=== PATIENT | male | born 1950 | race Caucasian/White ===

== ENCOUNTER 2019-03-19 20:54 | Inpatient (IN) ==
[2019-03-19 21:28] LABS: Basophils % 0.3 % (0.0-0.8); Eosinophils % 0.1 % (0.00-10.9); Hematocrit 44.6 VOL% (42.0-52.0); Hemoglobin 14.8 GM/DL (14.0-18.0); Immature Granulocytes % 0.5 %; Immature Granulocytes Absolute 0.07 #; Lymphocytes # 0.8 10*3/uL (1.4-4.0); Lymphocytes % 5.3 % (21.2-54.2); Mean Corpuscular HGB Conc 33.2 GM/DL (32-36); Mean Corpuscular Volume 93.7 FL (87-102); Mean Platelet Volume 10.8 FL (9.6-12.0); Monocytes % 4.6 % (1.7-12.7); Neutrophils % 89.2 % (38.7-73.9); Platelet Count 156 T/CUMM (130-400); Red Blood Count 4.76 MC/CUMM (3.8-5.5); Red Cell Distribution Width 13.6 % (9.3-17.3); White Blood Count 14.2 T/CUMM (4-12)
[2019-03-19 21:46] LABS: PT Patient Result 10.5 SECS; Partial Thromboplastin Time 29.9 SECS (0-40)
[2019-03-19 22:18] LABS: Bilirubin,Total 0.9 MG/DL (0.2-1.0); Calcium 8.5 MG/DL (8.5-10.1); Osmolality,Calculated 272.2 MOS/KG (273-304); Total Protein 6.8 G/DL (6.4-8.3)
[2019-03-20] MEDS ORDERED: cefTRIAXone 1,000 MG in SODIUM CHLORIDE 0.9% 100 ML IV STA (00:28)
[2019-03-20] MEDS ORDERED: ONDANSETRON 4 MG/2 ML VIAL IV STA (00:28)
[2019-03-20] MEDS ORDERED: methylPREDNISolone SOD SUC 125 MG/2 ML VIAL IV STA (00:28)
[2019-03-20] MEDS ORDERED: ALBUTEROL/IPRATROPIUM 3 ML NEB RESP TX STA (00:28)
[2019-03-20] MEDS ORDERED: MORPHINE 4 MG/1 ML VIAL IV STA (00:28)
[2019-03-20] MEDS ORDERED: ACETAMINOPHEN 325 MG TABLET PO PRN (03:38)
[2019-03-20] MEDS ORDERED: PNEUMOCOCCAL VACCINE (13 VALENT) 0.5 ML SYRINGE IM ONE (03:41)
[2019-03-20] MEDS: LEVOFLOXACIN INJ 750 MG in PREMIX 1 EACH IV SCH (04:30)
[2019-03-20 06:32] LABS: Basophils % 0.2 % (0.0-0.8); Hematocrit 42.4 VOL% (42.0-52.0); Immature Granulocytes % 0.8 %; Immature Granulocytes Absolute 0.09 #; Lymphocytes # 0.3 10*3/uL (1.4-4.0); Lymphocytes % 3.1 % (21.2-54.2); Mean Platelet Volume 11.1 FL (9.6-12.0); Monocytes % 2.1 % (1.7-12.7); Neutrophils % 93.8 % (38.7-73.9); Platelet Count 135 T/CUMM (130-400); Red Blood Count 4.51 MC/CUMM (3.8-5.5); Red Cell Distribution Width 13.5 % (9.3-17.3); White Blood Count 11.1 T/CUMM (4-12)
[2019-03-20 06:58] LABS: Band Neutrophils 2 % (0-10); Hypochromasia Slight; Lymphocytes 2 % (20-55); Ovalocytes Slight; Platelet Estimate Normal; Segmented Neutrophils 95 % (50-85); Total Cells Counted 100
[2019-03-20] MEDS: ALBUTEROL/IPRATROPIUM 3 ML NEB RESP TX SCH ×3 (07:18→20:17)
[2019-03-20] MEDS: MORPHINE 4 MG/1 ML VIAL IV PRN ×2 (09:02→16:52)
[2019-03-20] MEDS: ENOXAPARIN 40 MG/0.4 ML SYRINGE SUBCUT SCH (09:02)
[2019-03-20] MEDS: PANTOPRAZOLE 40 MG TABLET PO SCH (09:02)
[2019-03-20] MEDS: clonazePAM 0.5 MG TABLET PO SCH ×3 (13:04→21:34)
[2019-03-21] MEDS: ALBUTEROL/IPRATROPIUM 3 ML NEB RESP TX SCH ×4 (00:53→19:34)
[2019-03-21] MEDS: MORPHINE 4 MG/1 ML VIAL IV PRN ×2 (01:52→21:58)
[2019-03-21 04:30] LABS: Basophils % 0.1 % (0.0-0.8); Hemoglobin 12.5 GM/DL (14.0-18.0); Immature Granulocytes % 0.8 %; Immature Granulocytes Absolute 0.08 #; Lymphocytes # 0.8 10*3/uL (1.4-4.0); Lymphocytes % 7.6 % (21.2-54.2); Mean Corpuscular HGB Conc 33.8 GM/DL (32-36); Mean Corpuscular Volume 92.7 FL (87-102); Mean Platelet Volume 11.6 FL (9.6-12.0); Monocytes % 9.4 % (1.7-12.7); Neutrophils % 82.1 % (38.7-73.9); Platelet Count 144 T/CUMM (130-400); Red Blood Count 3.99 MC/CUMM (3.8-5.5); Red Cell Distribution Width 13.3 % (9.3-17.3); White Blood Count 10.5 T/CUMM (4-12)
[2019-03-21] MEDS: LEVOFLOXACIN INJ 750 MG in PREMIX 1 EACH IV SCH (04:30)
[2019-03-21 04:56] LABS: Calcium 8.7 MG/DL (8.5-10.1); Osmolality,Calculated 283.5 MOS/KG (273-304)
[2019-03-21] MEDS ORDERED: POTASSIUM CHLORIDE 20 MEQ TABLET PO ONE ×2 (08:24→12:00)
[2019-03-21] MEDS: ENOXAPARIN 40 MG/0.4 ML SYRINGE SUBCUT SCH (08:26)
[2019-03-21] MEDS: PANTOPRAZOLE 40 MG TABLET PO SCH (08:27)
[2019-03-21] MEDS: clonazePAM 0.5 MG TABLET PO SCH ×4 (08:27→21:45)
[2019-03-21] MEDS ORDERED: NICOTINE 21 MG/24 HR PATCH TRANSDERM PRN (11:25)
[2019-03-21] MEDS: LISINOPRIL 10 MG TABLET PO SCH (12:09)
[2019-03-21] MEDS: VANCOMYCIN INJ 1,000 MG in SODIUM CHLORIDE 0.9% 250 ML IV SCH ×2 (12:15→21:45)
[2019-03-22] MEDS: ALBUTEROL/IPRATROPIUM 3 ML NEB RESP TX SCH ×4 (00:16→19:20)
[2019-03-22] MEDS: MORPHINE 4 MG/1 ML VIAL IV PRN ×2 (04:04→08:53)
[2019-03-22] MEDS: LEVOFLOXACIN INJ 750 MG in PREMIX 1 EACH IV SCH (04:05)
[2019-03-22 05:42] LABS: Basophils % 0.3 % (0.0-0.8); Eosinophils # 0.2 10*3/uL (0.0-0.87); Eosinophils % 2.9 % (0.00-10.9); Hemoglobin 12.5 GM/DL (14.0-18.0); Immature Granulocytes % 0.5 %; Immature Granulocytes Absolute 0.03 #; Lymphocytes # 0.9 10*3/uL (1.4-4.0); Lymphocytes % 15.4 % (21.2-54.2); Mean Corpuscular HGB Conc 32.9 GM/DL (32-36); Mean Corpuscular Volume 94.5 FL (87-102); Mean Platelet Volume 11.3 FL (9.6-12.0); Monocytes % 12.3 % (1.7-12.7); Neutrophils % 68.6 % (38.7-73.9); Platelet Count 146 T/CUMM (130-400); Red Blood Count 4.02 MC/CUMM (3.8-5.5); Red Cell Distribution Width 13.7 % (9.3-17.3); White Blood Count 6.1 T/CUMM (4-12)
[2019-03-22] MEDS: PANTOPRAZOLE 40 MG TABLET PO SCH (08:51)
[2019-03-22] MEDS: LISINOPRIL 10 MG TABLET PO SCH (08:51)
[2019-03-22] MEDS: clonazePAM 0.5 MG TABLET PO SCH ×4 (08:52→21:44)
[2019-03-22] MEDS ORDERED: LACTULOSE 20 GM/30 ML UDCUP PO PRN (08:58)
[2019-03-22 09:23] LABS: Calcium 8.3 MG/DL (8.5-10.1); Osmolality,Calculated 279.4 MOS/KG (273-304)
[2019-03-22] MEDS: LIDOCAINE 5% PATCH TRANSDERM SCH (10:39)
[2019-03-22] MEDS: ENOXAPARIN 40 MG/0.4 ML SYRINGE SUBCUT SCH (10:40)
[2019-03-22] MEDS: VANCOMYCIN INJ 1,000 MG in SODIUM CHLORIDE 0.9% 250 ML IV SCH ×2 (10:44→21:44)
[2019-03-22] MEDS: LISINOPRIL 20 MG TABLET PO SCH (12:15)
[2019-03-22] MEDS ORDERED: LISINOPRIL 10 MG TABLET PO ONE (12:30)
[2019-03-22] MEDS: LEFLUNOMIDE 10 MG TABLET PO SCH (12:54)
[2019-03-22] MEDS: MELOXICAM 7.5 MG TABLET PO SCH (12:54)
[2019-03-22] MEDS: predniSONE 5 MG TABLET PO SCH (12:54)
[2019-03-23] MEDS: ALBUTEROL/IPRATROPIUM 3 ML NEB RESP TX SCH ×4 (00:34→19:08)
[2019-03-23] MEDS: MORPHINE 4 MG/1 ML VIAL IV PRN ×4 (02:57→20:28)
[2019-03-23] MEDS: LEVOFLOXACIN INJ 750 MG in PREMIX 1 EACH IV SCH (04:27)
[2019-03-23 05:46] LABS: Basophils % 0.2 % (0.0-0.8); Eosinophils # 0.1 10*3/uL (0.0-0.87); Eosinophils % 1.7 % (0.00-10.9); Hematocrit 37.4 VOL% (42.0-52.0); Hemoglobin 12.4 GM/DL (14.0-18.0); Immature Granulocytes % 0.6 %; Immature Granulocytes Absolute 0.03 #; Lymphocytes # 1.1 10*3/uL (1.4-4.0); Lymphocytes % 20.1 % (21.2-54.2); Mean Corpuscular HGB Conc 33.2 GM/DL (32-36); Mean Corpuscular Volume 93.5 FL (87-102); Monocytes % 13.8 % (1.7-12.7); Neutrophils % 63.6 % (38.7-73.9); Platelet Count 164 T/CUMM (130-400); Red Cell Distribution Width 13.7 % (9.3-17.3); White Blood Count 5.4 T/CUMM (4-12)
[2019-03-23 05:59] LABS: Calcium 8.2 MG/DL (8.5-10.1); Osmolality,Calculated 280.4 MOS/KG (273-304)
[2019-03-23] MEDS: VANCOMYCIN INJ 1,000 MG in SODIUM CHLORIDE 0.9% 250 ML IV SCH ×3 (06:17→22:28)
[2019-03-23] MEDS: LIDOCAINE 5% PATCH TRANSDERM SCH (08:56)
[2019-03-23] MEDS: clonazePAM 0.5 MG TABLET PO SCH ×4 (09:06→22:28)
[2019-03-23] MEDS: LEFLUNOMIDE 10 MG TABLET PO SCH (09:07)
[2019-03-23] MEDS: MELOXICAM 7.5 MG TABLET PO SCH (09:07)
[2019-03-23] MEDS: LISINOPRIL 20 MG TABLET PO SCH (09:07)
[2019-03-23] MEDS: ENOXAPARIN 40 MG/0.4 ML SYRINGE SUBCUT SCH (09:08)
[2019-03-23] MEDS: predniSONE 5 MG TABLET PO SCH (09:08)
[2019-03-23] MEDS: PANTOPRAZOLE 40 MG TABLET PO SCH (09:08)
[2019-03-23] MEDS: ONDANSETRON 4 MG/2 ML VIAL IV PRN (22:27)
[2019-03-24] MEDS: ALBUTEROL/IPRATROPIUM 3 ML NEB RESP TX SCH ×4 (00:28→20:20)
[2019-03-24] MEDS: MORPHINE 4 MG/1 ML VIAL IV PRN ×4 (04:55→23:56)
[2019-03-24] MEDS: VANCOMYCIN INJ 1,000 MG in SODIUM CHLORIDE 0.9% 250 ML IV SCH ×3 (05:01→23:55)
[2019-03-24 05:42] LABS: Basophils % 0.3 % (0.0-0.8); Eosinophils # 0.2 10*3/uL (0.0-0.87); Eosinophils % 2.5 % (0.00-10.9); Hematocrit 37.8 VOL% (42.0-52.0); Hemoglobin 12.5 GM/DL (14.0-18.0); Immature Granulocytes % 0.5 %; Immature Granulocytes Absolute 0.03 #; Lymphocytes # 1.5 10*3/uL (1.4-4.0); Lymphocytes % 24.5 % (21.2-54.2); Mean Corpuscular HGB Conc 33.1 GM/DL (32-36); Mean Corpuscular Volume 93.6 FL (87-102); Mean Platelet Volume 10.3 FL (9.6-12.0); Monocytes % 15.4 % (1.7-12.7); Neutrophils % 56.8 % (38.7-73.9); Platelet Count 185 T/CUMM (130-400); Red Blood Count 4.04 MC/CUMM (3.8-5.5); Red Cell Distribution Width 13.6 % (9.3-17.3)
[2019-03-24 05:55] LABS: Calcium 8.5 MG/DL (8.5-10.1); Osmolality,Calculated 280.4 MOS/KG (273-304)
[2019-03-24] MEDS: LIDOCAINE 5% PATCH TRANSDERM SCH (08:51)
[2019-03-24] MEDS: ENOXAPARIN 40 MG/0.4 ML SYRINGE SUBCUT SCH (08:52)
[2019-03-24] MEDS: MELOXICAM 7.5 MG TABLET PO SCH (08:52)
[2019-03-24] MEDS: predniSONE 5 MG TABLET PO SCH (08:52)
[2019-03-24] MEDS: clonazePAM 0.5 MG TABLET PO SCH ×4 (08:53→23:55)
[2019-03-24] MEDS: PANTOPRAZOLE 40 MG TABLET PO SCH (08:53)
[2019-03-24] MEDS: LEFLUNOMIDE 10 MG TABLET PO SCH (08:53)
[2019-03-24] MEDS: LISINOPRIL 20 MG TABLET PO SCH ×2 (08:53→23:54)
[2019-03-25] MEDS: ALBUTEROL/IPRATROPIUM 3 ML NEB RESP TX SCH ×4 (00:47→19:39)
[2019-03-25] MEDS: MORPHINE 4 MG/1 ML VIAL IV PRN ×3 (05:41→22:16)
[2019-03-25] MEDS: VANCOMYCIN INJ 1,000 MG in SODIUM CHLORIDE 0.9% 250 ML IV SCH ×3 (05:42→22:26)
[2019-03-25 05:48] LABS: Basophils % 0.5 % (0.0-0.8); Eosinophils # 0.2 10*3/uL (0.0-0.87); Eosinophils % 2.7 % (0.00-10.9); Hematocrit 38.4 VOL% (42.0-52.0); Hemoglobin 12.7 GM/DL (14.0-18.0); Immature Granulocytes % 0.5 %; Immature Granulocytes Absolute 0.03 #; Lymphocytes # 1.2 10*3/uL (1.4-4.0); Lymphocytes % 19.3 % (21.2-54.2); Mean Corpuscular HGB Conc 33.1 GM/DL (32-36); Mean Corpuscular Volume 93.4 FL (87-102); Mean Platelet Volume 9.9 FL (9.6-12.0); Monocytes % 14.8 % (1.7-12.7); Neutrophils % 62.2 % (38.7-73.9); Platelet Count 190 T/CUMM (130-400); Red Blood Count 4.11 MC/CUMM (3.8-5.5); Red Cell Distribution Width 13.5 % (9.3-17.3); White Blood Count 6.2 T/CUMM (4-12)
[2019-03-25 05:50] LABS: Calcium 8.5 MG/DL (8.5-10.1); Osmolality,Calculated 282.4 MOS/KG (273-304)
[2019-03-25] MEDS: ALBUTEROL 2.5 MG/3 ML NEB RESP TX PRN ×2 (07:28→07:29)
[2019-03-25] MEDS: ENOXAPARIN 40 MG/0.4 ML SYRINGE SUBCUT SCH (08:47)
[2019-03-25] MEDS: PANTOPRAZOLE 40 MG TABLET PO SCH (08:48)
[2019-03-25] MEDS: clonazePAM 0.5 MG TABLET PO SCH ×4 (08:48→20:40)
[2019-03-25] MEDS: predniSONE 5 MG TABLET PO SCH (08:48)
[2019-03-25] MEDS: LISINOPRIL 20 MG TABLET PO SCH ×2 (08:48→20:40)
[2019-03-25] MEDS: MELOXICAM 7.5 MG TABLET PO SCH (08:48)
[2019-03-25] MEDS: LEFLUNOMIDE 10 MG TABLET PO SCH (08:48)
[2019-03-25] MEDS: LIDOCAINE 5% PATCH TRANSDERM SCH (08:56)
[2019-03-25] MEDS: ONDANSETRON 4 MG/2 ML VIAL IV PRN (23:43)
[2019-03-26] MEDS: ALBUTEROL/IPRATROPIUM 3 ML NEB RESP TX SCH ×3 (00:16→13:40)
[2019-03-26] MEDS: MORPHINE 4 MG/1 ML VIAL IV PRN ×2 (04:37→12:04)
[2019-03-26] MEDS: VANCOMYCIN INJ 1,000 MG in SODIUM CHLORIDE 0.9% 250 ML IV SCH ×2 (06:35→14:30)
[2019-03-26] MEDS: LEFLUNOMIDE 10 MG TABLET PO SCH (09:01)
[2019-03-26] MEDS: LISINOPRIL 20 MG TABLET PO SCH (09:02)
[2019-03-26] MEDS: PANTOPRAZOLE 40 MG TABLET PO SCH (09:02)
[2019-03-26] MEDS: MELOXICAM 7.5 MG TABLET PO SCH (09:02)
[2019-03-26] MEDS: clonazePAM 0.5 MG TABLET PO SCH ×3 (09:03→18:18)
[2019-03-26] MEDS: LIDOCAINE 5% PATCH TRANSDERM SCH (09:03)
[2019-03-26] MEDS: ENOXAPARIN 40 MG/0.4 ML SYRINGE SUBCUT SCH (09:03)
[2019-03-26] MEDS: predniSONE 5 MG TABLET PO SCH (09:03)
[2019-03-26 16:11] VITALS: BP 154/96
== END 2019-03-26 17:25 | disposition home health service (06) | DRG 194 ==
LOC: N.ED 20:54 → N.EDINP 03-20 01:55 → SUATTDRO 03-20 01:55 → N.5E 03-20 02:24
PROVIDERS: ADMIT Internal Medicine; ATTEND Family Medicine

== ENCOUNTER 2019-05-02 02:43 | Inpatient (IN) ==
[2019-05-02] MEDS ORDERED: SODIUM CHLORIDE 0.9% 2,000 ML IV STA (02:54)
[2019-05-02 03:14] LABS: Basophils # 0.1 10*3/uL (0.0-0.2); Basophils % 0.4 % (0.0-0.8); Hematocrit 43.4 VOL% (42.0-52.0); Hemoglobin 13.9 GM/DL (14.0-18.0); Immature Granulocytes % 1.5 %; Immature Granulocytes Absolute 0.36 #; Lymphocytes # 0.6 10*3/uL (1.4-4.0); Lymphocytes % 2.6 % (21.2-54.2); Mean Corpuscular Volume 92.7 FL (87-102); Mean Platelet Volume 10.1 FL (9.6-12.0); Monocytes % 5.6 % (1.7-12.7); Neutrophils % 89.9 % (38.7-73.9); Platelet Count 286 T/CUMM (130-400); Red Blood Count 4.68 MC/CUMM (3.8-5.5); Red Cell Distribution Width 13.3 % (9.3-17.3); White Blood Count 24.2 T/CUMM (4-12)
[2019-05-02 03:35] LABS: Band Neutrophils 3 % (0-10); Lymphocytes 2 % (20-55); Metamyelocytes 1 %; Segmented Neutrophils 91 % (50-85); Total Cells Counted 100
[2019-05-02 03:36] LABS: Anisocytosis Slight; Microcytosis Slight
[2019-05-02 03:37] LABS: Burr Cells Few; Platelet Estimate Normal
[2019-05-02 03:39] LABS: Alanine Aminotransferase 38 U/L (16-61); Albumin 2.4 G/DL (3.4-5.0); Alkaline Phosphatase 121 U/L (45-117); Aspartate Amino Transferase 34 U/L (0-37); Blood Urea Nitrogen 41 MG/DL (7-18); Glucose 145 MG/DL (74-106); Osmolality,Calculated 282.1 MOS/KG (273-304); Total Protein 7.4 G/DL (6.4-8.3)
[2019-05-02] MEDS ORDERED: NOREPINEPHRINE 8 MG in SODIUM CHLORIDE 0.9% 242 ML IV PRN (03:46)
[2019-05-02] MEDS ORDERED: CEFEPIME 2,000 MG in SODIUM CHLORIDE 0.9% 100 ML IV STA (03:48)
[2019-05-02] MEDS ORDERED: VANCOMYCIN INJ 1,000 MG in SODIUM CHLORIDE 0.9% 250 ML IV STA (03:48)
[2019-05-02] MEDS ORDERED: metroNIDAZOLE INJ 500 MG in PREMIX 1 EACH IV STA ×2 (03:49→07:03)
[2019-05-02] MEDS ORDERED: ONDANSETRON 4 MG/2 ML VIAL IV PRN (06:11)
[2019-05-02] MEDS ORDERED: ALBUTEROL/IPRATROPIUM 3 ML NEB RESP TX PRN (06:11)
[2019-05-02] MEDS ORDERED: ALBUTEROL 2.5 MG/3 ML NEB RESP TX PRN (06:11)
[2019-05-02] MEDS ORDERED: ACETAMINOPHEN 325 MG TABLET PO PRN (06:11)
[2019-05-02] MEDS: SODIUM CHLORIDE 0.9% 1,000 ML IV SCH ×3 (06:27→20:24)
[2019-05-02 06:38] LABS: INR 1.2; PT Patient Result 12.7 SECS
[2019-05-02] MEDS: PIPERACILLIN/TAZOBACTAM 3,375 MG in SODIUM CHLORIDE 0.9% 100 ML IV SCH ×2 (07:04→17:32)
[2019-05-02] MEDS: FOLIC ACID 1 MG TABLET PO SCH (08:17)
[2019-05-02] MEDS ORDERED: predniSONE 5 MG TABLET PO SCH (09:00)
[2019-05-02] MEDS: chlordiazePOXIDE 10 MG CAPSULE PO SCH ×2 (12:33→21:57)
[2019-05-02] MEDS: GABAPENTIN 300 MG CAPSULE PO SCH ×2 (12:33→21:57)
[2019-05-02] MEDS: DICLOFENAC 1% GEL 100 GM TUBE TOP SCH ×3 (18:00→21:56)
[2019-05-02 20:41] LABS: Apearance,Urine CLOUDY (Clear); Bilirubin,Urine Negative (Negative); Blood, Urine Negative (Negative); Glucose,Urine (UA) 150 mg/dL (Negative); Granular Casts,Urine 21 /LPF (0-1); Hyaline Casts,Urine 28 /LPF (0-3); Ketones,Urine 5 mg/dL (Negative); Mucus,Urine Occasional /LPF (Occasional); Nitrite,Urine Negative (Negative); Protein,Urine 30 MG/DL; RBC,Urine 3 /HPF (0-4); Squamous Epithelial Cell,Urine Occasional /HPF (0-10); Urine Color Amber (Yellow); Urine Specific Gravity 1.029 (1.001-1.035); Urine Urobilinogen < 2.0 EU/DL (0.2-1.0); WBC,Urine 4 /HPF (0-6)
[2019-05-02] MEDS: predniSONE 10 MG TABLET PO SCH (21:57)
[2019-05-02] MEDS: MIRTAZAPINE 30 MG TABLET PO SCH (21:57)
[2019-05-03] MEDS: PIPERACILLIN/TAZOBACTAM 3,375 MG in SODIUM CHLORIDE 0.9% 100 ML IV SCH ×2 (00:36→08:53)
[2019-05-03 01:15] LABS: Calcium 8.3 MG/DL (8.5-10.1); Osmolality,Calculated 293.4 MOS/KG (273-304)
[2019-05-03 01:26] LABS: Basophils % 0.1 % (0.0-0.8); Eosinophils % 0.1 % (0.00-10.9); Hemoglobin 11.4 GM/DL (14.0-18.0); Immature Granulocytes % 1.3 %; Immature Granulocytes Absolute 0.22 #; Lymphocytes # 0.6 10*3/uL (1.4-4.0); Lymphocytes % 3.5 % (21.2-54.2); Mean Corpuscular HGB Conc 33.5 GM/DL (32-36); Mean Corpuscular Volume 90.9 FL (87-102); Mean Platelet Volume 10.7 FL (9.6-12.0); Monocytes % 6.8 % (1.7-12.7); Neutrophils % 88.2 % (38.7-73.9); Platelet Count 253 T/CUMM (130-400); Red Blood Count 3.74 MC/CUMM (3.8-5.5); Red Cell Distribution Width 13.1 % (9.3-17.3); White Blood Count 17.4 T/CUMM (4-12)
[2019-05-03] MEDS: SODIUM CHLORIDE 0.9% 1,000 ML IV SCH ×4 (02:07→19:42)
[2019-05-03 03:01] LABS: Lymphocytes 4 % (20-55); Segmented Neutrophils 89 % (50-85); Total Cells Counted 100
[2019-05-03 03:02] LABS: Anisocytosis 1+; Burr Cells Slight; Hypochromasia Slight; Microcytosis Slight; Ovalocytes Slight; Platelet Estimate Adequate
[2019-05-03] MEDS: FOLIC ACID 1 MG TABLET PO SCH (08:50)
[2019-05-03] MEDS: chlordiazePOXIDE 10 MG CAPSULE PO SCH ×2 (08:50→20:27)
[2019-05-03] MEDS: GABAPENTIN 300 MG CAPSULE PO SCH ×2 (08:51→20:27)
[2019-05-03] MEDS: predniSONE 10 MG TABLET PO SCH ×2 (08:51→20:27)
[2019-05-03] MEDS: DICLOFENAC 1% GEL 100 GM TUBE TOP SCH ×4 (08:52→20:28)
[2019-05-03] MEDS: VANCOMYCIN INJ 1,250 MG in SODIUM CHLORIDE 0.9% 250 ML IV SCH (10:07)
[2019-05-03] MEDS: MIRTAZAPINE 30 MG TABLET PO SCH (20:27)
[2019-05-04 04:16] LABS: Basophils % 0.1 % (0.0-0.8); Hematocrit 31.6 VOL% (42.0-52.0); Hemoglobin 10.4 GM/DL (14.0-18.0); Immature Granulocytes % 0.9 %; Lymphocytes # 0.5 10*3/uL (1.4-4.0); Lymphocytes % 4.1 % (21.2-54.2); Mean Corpuscular HGB Conc 32.9 GM/DL (32-36); Mean Corpuscular Volume 91.6 FL (87-102); Mean Platelet Volume 10.5 FL (9.6-12.0); Monocytes % 6.8 % (1.7-12.7); Neutrophils % 88.1 % (38.7-73.9); Platelet Count 240 T/CUMM (130-400); Red Blood Count 3.45 MC/CUMM (3.8-5.5); Red Cell Distribution Width 13.1 % (9.3-17.3); White Blood Count 11.3 T/CUMM (4-12)
[2019-05-04 04:39] LABS: Calcium 8.3 MG/DL (8.5-10.1); Osmolality,Calculated 290.1 MOS/KG (273-304)
[2019-05-04] MEDS: SODIUM CHLORIDE 0.9% 1,000 ML IV SCH ×3 (04:50→18:34)
[2019-05-04 05:00] LABS: Lymphocytes 3 % (20-55); Platelet Estimate Adequate; Segmented Neutrophils 90 % (50-85); Total Cells Counted 100
[2019-05-04 05:01] LABS: Burr Cells Slight; Hypochromasia Slight; Microcytosis Slight; Ovalocytes Slight
[2019-05-04] MEDS: GABAPENTIN 300 MG CAPSULE PO SCH ×2 (09:28→20:24)
[2019-05-04] MEDS: predniSONE 10 MG TABLET PO SCH ×2 (09:28→20:25)
[2019-05-04] MEDS: chlordiazePOXIDE 10 MG CAPSULE PO SCH ×2 (09:28→20:25)
[2019-05-04] MEDS: FOLIC ACID 1 MG TABLET PO SCH (09:28)
[2019-05-04] MEDS: VANCOMYCIN INJ 1,250 MG in SODIUM CHLORIDE 0.9% 250 ML IV SCH ×2 (09:29→20:26)
[2019-05-04] MEDS: DICLOFENAC 1% GEL 100 GM TUBE TOP SCH ×4 (10:49→20:35)
[2019-05-04] MEDS: MIRTAZAPINE 30 MG TABLET PO SCH (20:24)
[2019-05-05] MEDS: SODIUM CHLORIDE 0.9% 1,000 ML IV SCH ×4 (04:36→23:24)
[2019-05-05 04:47] LABS: Basophils % 0.2 % (0.0-0.8); Immature Granulocytes % 0.6 %; Immature Granulocytes Absolute 0.07 #; Lymphocytes # 0.6 10*3/uL (1.4-4.0); Lymphocytes % 5.1 % (21.2-54.2); Mean Corpuscular HGB Conc 32.4 GM/DL (32-36); Mean Corpuscular Volume 91.4 FL (87-102); Mean Platelet Volume 10.7 FL (9.6-12.0); Monocytes % 8.1 % (1.7-12.7); Platelet Count 261 T/CUMM (130-400); Red Blood Count 3.72 MC/CUMM (3.8-5.5); Red Cell Distribution Width 13.2 % (9.3-17.3); White Blood Count 11.2 T/CUMM (4-12)
[2019-05-05 05:16] LABS: Calcium 8.2 MG/DL (8.5-10.1)
[2019-05-05] MEDS: DICLOFENAC 1% GEL 100 GM TUBE TOP SCH ×4 (09:00→21:11)
[2019-05-05] MEDS: VANCOMYCIN INJ 1,250 MG in SODIUM CHLORIDE 0.9% 250 ML IV SCH ×2 (09:00→21:01)
[2019-05-05] MEDS ORDERED: FAMOTIDINE 20 MG TABLET PO ONE (09:00)
[2019-05-05] MEDS ORDERED: DIAZEPAM 5 MG TABLET PO ONE (09:00)
[2019-05-05] MEDS ORDERED: BACITRACIN OINT 0.9 GM PACK TOP ONE (11:21)
[2019-05-05] MEDS ORDERED: LIDOCAINE 1%/EPI INJ 20 ML VIAL ONE (11:21)
[2019-05-05] MEDS ORDERED: BACITRACIN 50,000 UNIT VIAL ONE (11:39)
[2019-05-05] MEDS ORDERED: PROPOFOL 200 MG/20 ML VIAL IV ONE (12:05)
[2019-05-05] MEDS ORDERED: fentaNYL 100 MCG/2 ML VIAL ONE (12:06)
[2019-05-05] MEDS ORDERED: MIDAZOLAM 2 MG/2 ML VIAL ONE (12:06)
[2019-05-05] MEDS ORDERED: KETAMINE 500 MG/10 ML VIAL ONE (12:07)
[2019-05-05] MEDS: GABAPENTIN 300 MG CAPSULE PO SCH ×2 (13:52→20:54)
[2019-05-05] MEDS: chlordiazePOXIDE 10 MG CAPSULE PO SCH ×2 (13:52→20:54)
[2019-05-05] MEDS: FOLIC ACID 1 MG TABLET PO SCH (13:52)
[2019-05-05] MEDS: predniSONE 10 MG TABLET PO SCH ×2 (13:52→20:55)
[2019-05-05 17:45] LABS: CDT Result Negative (Negative); CDT Specimen Source STOOL
[2019-05-05] MEDS: MIRTAZAPINE 30 MG TABLET PO SCH (20:55)
[2019-05-06] MEDS: LISINOPRIL 20 MG TABLET PO SCH ×2 (01:27→09:09)
[2019-05-06] MEDS: SODIUM CHLORIDE 0.9% 1,000 ML IV SCH ×4 (03:58→21:08)
[2019-05-06] MEDS: FOLIC ACID 1 MG TABLET PO SCH (09:09)
[2019-05-06] MEDS: chlordiazePOXIDE 10 MG CAPSULE PO SCH ×2 (09:09→21:17)
[2019-05-06] MEDS: GABAPENTIN 300 MG CAPSULE PO SCH ×2 (09:09→21:17)
[2019-05-06] MEDS: predniSONE 10 MG TABLET PO SCH ×2 (09:09→21:17)
[2019-05-06] MEDS: DICLOFENAC 1% GEL 100 GM TUBE TOP SCH ×4 (09:10→21:17)
[2019-05-06] MEDS: VANCOMYCIN INJ 1,250 MG in SODIUM CHLORIDE 0.9% 250 ML IV SCH ×2 (11:02→21:18)
[2019-05-06] MEDS ORDERED: oxyCODONE/ACETAMINOPHEN 5-325 MG TABLET PO PRN (12:33)
[2019-05-06] MEDS: oxyCODONE/ACETAMINOPHEN 5-325 MG TABLET PO PRN (19:31)
[2019-05-06] MEDS: MIRTAZAPINE 30 MG TABLET PO SCH (21:17)
[2019-05-07] MEDS: SODIUM CHLORIDE 0.9% 1,000 ML IV SCH ×3 (05:07→18:45)
[2019-05-07] MEDS: oxyCODONE/ACETAMINOPHEN 5-325 MG TABLET PO PRN ×3 (07:29→20:05)
[2019-05-07] MEDS: chlordiazePOXIDE 10 MG CAPSULE PO SCH ×2 (08:26→20:07)
[2019-05-07] MEDS: predniSONE 10 MG TABLET PO SCH ×2 (08:26→20:07)
[2019-05-07] MEDS: LISINOPRIL 20 MG TABLET PO SCH (08:27)
[2019-05-07] MEDS: DICLOFENAC 1% GEL 100 GM TUBE TOP SCH ×4 (08:27→20:07)
[2019-05-07] MEDS: FOLIC ACID 1 MG TABLET PO SCH (08:27)
[2019-05-07] MEDS: GABAPENTIN 300 MG CAPSULE PO SCH ×2 (08:27→20:05)
[2019-05-07] MEDS: VANCOMYCIN INJ 1,250 MG in SODIUM CHLORIDE 0.9% 250 ML IV SCH (12:53)
[2019-05-07] MEDS ORDERED: VANCOMYCIN INJ 1,250 MG in SODIUM CHLORIDE 0.9% 250 ML IV SCH (18:30)
[2019-05-07] MEDS: MIRTAZAPINE 30 MG TABLET PO SCH (20:05)
[2019-05-08] MEDS: VANCOMYCIN INJ 1,500 MG in SODIUM CHLORIDE 0.9% 500 ML IV SCH ×2 (00:18→12:07)
[2019-05-08] MEDS: SODIUM CHLORIDE 0.9% 1,000 ML IV SCH ×2 (00:20→21:44)
[2019-05-08] MEDS: oxyCODONE/ACETAMINOPHEN 5-325 MG TABLET PO PRN ×3 (02:57→18:45)
[2019-05-08] MEDS: LISINOPRIL 20 MG TABLET PO SCH (09:29)
[2019-05-08] MEDS: predniSONE 10 MG TABLET PO SCH ×2 (09:29→20:25)
[2019-05-08] MEDS: FOLIC ACID 1 MG TABLET PO SCH (09:29)
[2019-05-08] MEDS: GABAPENTIN 300 MG CAPSULE PO SCH ×2 (09:30→20:25)
[2019-05-08] MEDS: chlordiazePOXIDE 10 MG CAPSULE PO SCH ×2 (09:31→20:25)
[2019-05-08] MEDS: DICLOFENAC 1% GEL 100 GM TUBE TOP SCH ×4 (09:45→20:25)
[2019-05-08] MEDS: MIRTAZAPINE 30 MG TABLET PO SCH (20:25)
[2019-05-09] MEDS: VANCOMYCIN INJ 1,500 MG in SODIUM CHLORIDE 0.9% 500 ML IV SCH ×2 (00:15→12:03)
[2019-05-09] MEDS: oxyCODONE/ACETAMINOPHEN 5-325 MG TABLET PO PRN ×4 (00:15→18:49)
[2019-05-09] MEDS: LISINOPRIL 20 MG TABLET PO SCH (09:09)
[2019-05-09] MEDS: GABAPENTIN 300 MG CAPSULE PO SCH ×2 (09:09→21:02)
[2019-05-09] MEDS: chlordiazePOXIDE 10 MG CAPSULE PO SCH ×2 (09:09→21:02)
[2019-05-09] MEDS: predniSONE 10 MG TABLET PO SCH ×2 (09:09→21:02)
[2019-05-09] MEDS: FOLIC ACID 1 MG TABLET PO SCH (09:11)
[2019-05-09] MEDS: DICLOFENAC 1% GEL 100 GM TUBE TOP SCH ×4 (09:11→21:03)
[2019-05-09 12:07] LABS: Calcium 8.6 MG/DL (8.5-10.1); Osmolality,Calculated 281.3 MOS/KG (273-304)
[2019-05-09] MEDS: MIRTAZAPINE 30 MG TABLET PO SCH (21:02)
[2019-05-10] MEDS: oxyCODONE/ACETAMINOPHEN 5-325 MG TABLET PO PRN ×4 (00:13→20:06)
[2019-05-10] MEDS: VANCOMYCIN INJ 1,500 MG in SODIUM CHLORIDE 0.9% 500 ML IV SCH ×2 (00:16→12:22)
[2019-05-10] MEDS: GABAPENTIN 300 MG CAPSULE PO SCH ×2 (09:17→20:12)
[2019-05-10] MEDS: FOLIC ACID 1 MG TABLET PO SCH (09:17)
[2019-05-10] MEDS: predniSONE 10 MG TABLET PO SCH ×2 (09:17→20:12)
[2019-05-10] MEDS: LISINOPRIL 20 MG TABLET PO SCH (09:17)
[2019-05-10] MEDS: DICLOFENAC 1% GEL 100 GM TUBE TOP SCH ×4 (09:17→20:13)
[2019-05-10] MEDS: MIRTAZAPINE 30 MG TABLET PO SCH (20:12)
[2019-05-10] MEDS: hydrALAZINE 20 MG/1 ML VIAL IV PRN (22:19)
[2019-05-11] MEDS: VANCOMYCIN INJ 1,500 MG in SODIUM CHLORIDE 0.9% 500 ML IV SCH ×3 (00:15→23:21)
[2019-05-11] MEDS: oxyCODONE/ACETAMINOPHEN 5-325 MG TABLET PO PRN ×3 (02:55→22:14)
[2019-05-11] MEDS: LISINOPRIL 20 MG TABLET PO SCH ×2 (09:09→20:53)
[2019-05-11] MEDS: FOLIC ACID 1 MG TABLET PO SCH (09:10)
[2019-05-11] MEDS: GABAPENTIN 300 MG CAPSULE PO SCH ×2 (09:10→20:53)
[2019-05-11] MEDS: predniSONE 10 MG TABLET PO SCH ×2 (09:11→20:53)
[2019-05-11] MEDS: DICLOFENAC 1% GEL 100 GM TUBE TOP SCH ×4 (09:11→20:53)
[2019-05-11] MEDS ORDERED: PROPOFOL 200 MG/20 ML VIAL IV ONE (15:14)
[2019-05-11] MEDS: MIRTAZAPINE 30 MG TABLET PO SCH (20:53)
[2019-05-12 04:44] LABS: Calcium 8.6 MG/DL (8.5-10.1); Osmolality,Calculated 284.1 MOS/KG (273-304)
[2019-05-12] MEDS: GABAPENTIN 300 MG CAPSULE PO SCH ×2 (08:48→22:15)
[2019-05-12] MEDS: FOLIC ACID 1 MG TABLET PO SCH (08:48)
[2019-05-12] MEDS: predniSONE 10 MG TABLET PO SCH ×2 (08:48→22:16)
[2019-05-12] MEDS: DICLOFENAC 1% GEL 100 GM TUBE TOP SCH ×4 (08:48→22:35)
[2019-05-12] MEDS: LISINOPRIL 20 MG TABLET PO SCH ×2 (08:52→22:15)
[2019-05-12] MEDS ORDERED: fentaNYL 50 MCG/HR PATCH TRANSDERM SCH (09:30)
[2019-05-12] MEDS: VANCOMYCIN INJ 1,500 MG in SODIUM CHLORIDE 0.9% 500 ML IV SCH (12:26)
[2019-05-12] MEDS: oxyCODONE/ACETAMINOPHEN 5-325 MG TABLET PO PRN (18:45)
[2019-05-12] MEDS: MIRTAZAPINE 30 MG TABLET PO SCH (22:16)
[2019-05-13] MEDS: VANCOMYCIN INJ 1,500 MG in SODIUM CHLORIDE 0.9% 500 ML IV SCH ×2 (01:15→11:37)
[2019-05-13 04:44] LABS: Basophils % 0.2 % (0.0-0.8); Eosinophils % 0.3 % (0.00-10.9); Hematocrit 31.5 VOL% (42.0-52.0); Immature Granulocytes Absolute 0.09 #; Lymphocytes # 0.9 10*3/uL (1.4-4.0); Lymphocytes % 10.1 % (21.2-54.2); Mean Corpuscular HGB Conc 31.7 GM/DL (32-36); Mean Corpuscular Volume 92.9 FL (87-102); Mean Platelet Volume 9.8 FL (9.6-12.0); Monocytes % 6.5 % (1.7-12.7); Neutrophils % 81.9 % (38.7-73.9); Platelet Count 293 T/CUMM (130-400); Red Blood Count 3.39 MC/CUMM (3.8-5.5); Red Cell Distribution Width 14.2 % (9.3-17.3); White Blood Count 8.8 T/CUMM (4-12)
[2019-05-13 05:13] LABS: Calcium 8.1 MG/DL (8.5-10.1); Osmolality,Calculated 287.1 MOS/KG (273-304)
[2019-05-13] MEDS: oxyCODONE/ACETAMINOPHEN 5-325 MG TABLET PO PRN ×2 (05:46→13:40)
[2019-05-13] MEDS: predniSONE 10 MG TABLET PO SCH (09:09)
[2019-05-13] MEDS: LISINOPRIL 20 MG TABLET PO SCH (09:09)
[2019-05-13] MEDS: FOLIC ACID 1 MG TABLET PO SCH (09:09)
[2019-05-13] MEDS: GABAPENTIN 300 MG CAPSULE PO SCH (09:09)
[2019-05-13] MEDS: DICLOFENAC 1% GEL 100 GM TUBE TOP SCH ×2 (09:10→13:41)
[2019-05-13] MEDS ORDERED: amLODIPine 5 MG TABLET PO SCH (10:00)
[2019-05-13 11:37] VITALS: BP 167/112
[2019-05-13] MEDS: hydrALAZINE 20 MG/1 ML VIAL IV PRN (13:38)
== END 2019-05-13 15:45 | disposition home or self-care (01) | DRG 853 ==
LOC: EDBD → EDUNIT# → N.ED 02:43 → N.EDINP 05:13 → SUATTDRO 05:13 → N.CC 05:47 → N.3E 05-04 01:19
PROVIDERS: ADMIT Internal Medicine; ATTEND Internal Medicine

== ENCOUNTER 2021-03-08 12:27 | Observation (INO) ==
[2021-03-08] MEDS ORDERED: ALBUTEROL/IPRATROPIUM 3 ML NEB RESP TX STA (12:57)
[2021-03-08 13:20] LABS: Basophils % 0.4 % (0.0-0.8); Eosinophils # 0.1 10*3/uL (0.0-0.87); Eosinophils % 0.8 % (0.00-10.9); Hematocrit 27.3 VOL% (42.0-52.0); Hemoglobin 8.7 GM/DL (14.0-18.0); Immature Granulocytes % 0.4 %; Immature Granulocytes Absolute 0.04 #; Lymphocytes # 0.9 10*3/uL (1.4-4.0); Lymphocytes % 8.8 % (21.2-54.2); Mean Corpuscular HGB Conc 31.9 GM/DL (32-36); Mean Corpuscular Volume 87.5 FL (87-102); Mean Platelet Volume 9.7 FL (9.6-12.0); Monocytes % 6.7 % (1.7-12.7); Neutrophils % 82.9 % (38.7-73.9); Platelet Count 398 T/CUMM (130-400); Red Blood Count 3.12 MC/CUMM (3.8-5.5); White Blood Count 10.1 T/CUMM (4-12)
[2021-03-08 13:39] LABS: Alanine Aminotransferase 17 U/L (16-61); Alkaline Phosphatase 141 U/L (45-117); Aspartate Amino Transferase 18 U/L (0-37); Bilirubin,Total < 0.39 MG/DL (0.2-1.0); Blood Urea Nitrogen 30 MG/DL (7-18); Calcium 8.4 MG/DL (8.5-10.1); Carbon Dioxide 25 MMOL/L (21-32); Estimated Glom Filtration Rate 85 ML/MIN; Glucose 118 MG/DL (74-106); Osmolality,Calculated 270.5 MOS/KG (273-304); Potassium 3.6 MMOL/L (3.5-5.1); Sodium 132 MMOL/L (136-145); Total Protein 6.9 G/DL (6.4-8.2)
[2021-03-08] MEDS ORDERED: SODIUM CHLORIDE 0.9% 500 ML IV STA (17:23)
[2021-03-08] MEDS ORDERED: oxyCODONE/ACETAMINOPHEN 5-325 MG TABLET PO ONE (18:08)
[2021-03-08] MEDS ORDERED: DEXTROSE 50% 25 GM/50 ML VIAL IV PRN (18:34)
[2021-03-08] MEDS ORDERED: ONDANSETRON 4 MG/2 ML VIAL IV PRN (18:34)
[2021-03-08] MEDS ORDERED: GLUCAGON 1 MG VIAL IM PRN (18:34)
[2021-03-08] MEDS: ALBUTEROL/IPRATROPIUM 3 ML NEB RESP TX SCH (19:33)
[2021-03-08] MEDS ORDERED: ENOXAPARIN 40 MG/0.4 ML SYRINGE SUBCUT SCH (21:00)
[2021-03-08] MEDS ORDERED: AMITRIPTYLINE 25 MG TABLET PO SCH (21:00)
[2021-03-08] MEDS: SODIUM CHLOR 0.9% KCL 20 MEQ 20 MEQ/1,000 ML BAG IV SCH (21:58)
[2021-03-08] MEDS: methylPREDNISolone SOD SUC 40 MG/1 ML VIAL IV SCH (21:59)
[2021-03-08] MEDS: MEGESTROL 40 MG TABLET PO SCH (21:59)
[2021-03-08] MEDS: HYDROmorphone 2 MG/1 ML VIAL IV PRN (22:07)
[2021-03-09] MEDS: ALBUTEROL/IPRATROPIUM 3 ML NEB RESP TX SCH ×3 (00:35→13:33)
[2021-03-09] MEDS: methylPREDNISolone SOD SUC 40 MG/1 ML VIAL IV SCH ×2 (04:44→13:22)
[2021-03-09 04:48] LABS: Basophils % 0.1 % (0.0-0.8); Hematocrit 25.8 VOL% (42.0-52.0); Hemoglobin 8.3 GM/DL (14.0-18.0); Immature Granulocytes % 0.7 %; Immature Granulocytes Absolute 0.05 #; Lymphocytes # 0.7 10*3/uL (1.4-4.0); Lymphocytes % 9.1 % (21.2-54.2); Mean Corpuscular HGB Conc 32.2 GM/DL (32-36); Mean Corpuscular Volume 87.5 FL (87-102); Mean Platelet Volume 9.7 FL (9.6-12.0); Monocytes % 1.5 % (1.7-12.7); Neutrophils % 88.6 % (38.7-73.9); Platelet Count 377 T/CUMM (130-400); Red Blood Count 2.95 MC/CUMM (3.8-5.5); White Blood Count 7.5 T/CUMM (4-12)
[2021-03-09 05:19] LABS: Calcium 8.3 MG/DL (8.5-10.1); Osmolality,Calculated 281.8 MOS/KG (273-304); Potassium 3.9 MMOL/L (3.5-5.1)
[2021-03-09] MEDS: SODIUM CHLOR 0.9% KCL 20 MEQ 20 MEQ/1,000 ML BAG IV SCH ×2 (06:22→17:18)
[2021-03-09] MEDS: HYDROmorphone 2 MG/1 ML VIAL IV PRN ×2 (08:29→13:33)
[2021-03-09] MEDS ORDERED: amLODIPine 5 MG TABLET PO SCH (09:00)
[2021-03-09] MEDS ORDERED: lisinopriL 20 MG TABLET PO SCH (09:00)
[2021-03-09] MEDS ORDERED: PANTOPRAZOLE 40 MG TABLET PO SCH (09:00)
[2021-03-09] MEDS: MEGESTROL 40 MG TABLET PO SCH (13:21)
[2021-03-09 13:37] VITALS: BP 150/69
[2021-03-09] MEDS ORDERED: oxyCODONE/ACETAMINOPHEN 5-325 MG TABLET PO SCH (15:00)
[2021-03-09 15:01] LABS: Bilirubin,Urine Negative (Negative); Blood, Urine Negative (Negative); Glucose,Urine (UA) 50 mg/dL (Negative); Hyaline Casts,Urine 3 /LPF (0-3); Ketones,Urine Negative (Negative); Mucus,Urine Many /LPF (Occasional); Nitrite,Urine Negative (Negative); Protein,Urine 30 MG/DL; RBC,Urine 5 /HPF (0-4); Squamous Epithelial Cell,Urine Occasional /HPF (0-10); Urine Appearance Slightly Hazy (Clear); Urine Color Yellow (Yellow); Urine Specific Gravity 1.033 (1.001-1.035); Urine Urobilinogen < 2.0 EU/DL (0.2-1.0); WBC,Urine 16 /HPF (0-6)
[2021-03-09 16:31] LABS: Folate 9.4 NG/ML (5.38-24.0)
[2021-03-09] MEDS ORDERED: ZALEPLON 5 MG CAPSULE PO SCH (21:00)
[2021-03-09] MEDS ORDERED: traZODone 50 MG TABLET PO SCH (21:00)
== END 2021-03-09 17:30 | disposition home or self-care (01) ==
LOC: N.EDINP 12:27 → N.ED 12:27 → N.3E 20:42
PROVIDERS: ADMIT Family Medicine; ATTEND Family Medicine

== ENCOUNTER 2022-05-22 14:07 | Inpatient (IN) ==
[2022-05-22] MEDS ORDERED: DEXAMETHASONE 4 MG/1 ML VIAL IV STA (15:07)
[2022-05-22] MEDS ORDERED: SODIUM CHLORIDE 0.9% 1,000 ML IV STA (15:07)
[2022-05-22] MEDS ORDERED: AZITHROMYCIN INJ 500 MG in SODIUM CHLORIDE 0.9% 250 ML IV STA (15:15)
[2022-05-22 15:44] LABS: Basophils % 0.1 % (0.0-0.8); Hematocrit 40.8 VOL% (42.0-52.0); Immature Granulocytes % 0.3 %; Immature Granulocytes Absolute 0.02 #; Lymphocytes # 0.8 10*3/uL (1.4-4.0); Lymphocytes % 12.4 % (21.2-54.2); Mean Corpuscular HGB Conc 31.9 GM/DL (32-36); Mean Corpuscular Volume 96.7 FL (87-102); Mean Platelet Volume 10.2 FL (9.6-12.0); Monocytes # 0.4 10*3/uL (0.11-0.8); Monocytes % 5.8 % (1.7-12.7); Neutrophils % 81.4 % (38.7-73.9); Platelet Count 215 T/CUMM (130-400); Red Blood Count 4.22 MC/CUMM (3.8-5.5); Red Cell Distribution Width 14.1 % (9.3-17.3); White Blood Count 6.7 T/CUMM (4-12)
[2022-05-22 16:01] LABS: Alanine Aminotransferase 38 U/L (16-61); Albumin 2.8 G/DL (3.4-5.0); Alkaline Phosphatase 111 U/L (45-117); Aspartate Amino Transferase 32 U/L (0-37); Bilirubin,Total < 0.39 MG/DL (0.20-1.00); Blood Urea Nitrogen 19 MG/DL (7-18); Calcium 8.2 MG/DL (8.5-10.1); Carbon Dioxide 32 MMOL/L (21-32); Chloride 102 MMOL/L (98-107); Glucose 87 MG/DL (74-106); Osmolality,Calculated 273.8 MOS/KG (273-304); Potassium 3.9 MMOL/L (3.5-5.1); Sodium 137 MMOL/L (136-145); Total Protein 6.6 G/DL (6.4-8.2)
[2022-05-22] MEDS ORDERED: guaiFENesin/DM ER 600-30 MG TABLET PO PRN (16:27)
[2022-05-22] MEDS ORDERED: hydrALAZINE 20 MG/1 ML VIAL IV PRN (16:27)
[2022-05-22] MEDS ORDERED: ACETAMINOPHEN 325 MG TABLET PO PRN (16:27)
[2022-05-22] MEDS ORDERED: DOCUSATE SODIUM 100 MG CAPSULE PO PRN (16:27)
[2022-05-22] MEDS ORDERED: DEXTROSE 10% 250 ML BAG IV PRN (16:27)
[2022-05-22] MEDS ORDERED: ONDANSETRON 4 MG/2 ML VIAL IV PRN (16:27)
[2022-05-22] MEDS ORDERED: GLUCAGON 1 MG VIAL IM PRN (16:27)
[2022-05-22] MEDS ORDERED: ALBUTEROL 1.25 MG/3 ML NEB RESP TX PRN (16:41)
[2022-05-22] MEDS ORDERED: cefTRIAXone 1,000 MG in SODIUM CHLORIDE 0.9% 100 ML IV SCH (17:00)
[2022-05-22] MEDS ORDERED: ENOXAPARIN 40 MG/0.4 ML SYRINGE SUBCUT SCH (17:00)
[2022-05-22] MEDS: INSULIN LISPRO 100 UNIT/ML SUBCUT SCH ×2 (17:16→21:22)
[2022-05-22 17:28] LABS: Arterial Base Excess iSTAT 5 MMOL/L (-2.5-2.5); Arterial Bicarbonate iSTAT 29.5 MMOL/L (20-26); Arterial O2 Saturation iSTAT 96 % (95-100); Arterial PCO2 iSTAT 42 MM HG (35-48); Arterial PO2 iSTAT 79 MM HG (80-95); Arterial Total CO2 iSTAT 31 MMO/L (23-27); Arterial pH iSTAT 7.454 (7.35-7.45)
[2022-05-22] MEDS ORDERED: tiZANidine 4 MG TABLET PO PRN (17:38)
[2022-05-22] MEDS ORDERED: NICOTINE 21 MG/24 HR PATCH TRANSDERM PRN (17:52)
[2022-05-22] MEDS ORDERED: ALBUTEROL/IPRATROPIUM 3 ML NEB RESP TX SCH (19:00)
[2022-05-22] MEDS: oxyCODONE/ACETAMINOPHEN 5-325 MG TABLET PO PRN (19:44)
[2022-05-22] MEDS: VENLAFAXINE XR 37.5 MG CAPSULE PO SCH (21:20)
[2022-05-22] MEDS: FAMOTIDINE 20 MG TABLET PO SCH (21:20)
[2022-05-22] MEDS: APIXABAN 5 MG TABLET PO SCH (21:20)
[2022-05-22] MEDS: traZODone 50 MG TABLET PO SCH (21:20)
[2022-05-22] MEDS: GABAPENTIN 400 MG CAPSULE PO SCH (21:20)
[2022-05-22] MEDS: MORPHINE IR 15 MG TABLET PO SCH (21:21)
[2022-05-22] MEDS: ASCORBIC ACID 500 MG TABLET PO SCH (21:24)
[2022-05-22] MEDS: ALBUTEROL INHALER 18 GM INH SCH (21:50)
[2022-05-23] MEDS: ALBUTEROL INHALER 18 GM INH SCH ×4 (01:27→19:33)
[2022-05-23 05:38] LABS: Basophils % 0.2 % (0.0-0.8); Hematocrit 43.2 VOL% (42.0-52.0); Hemoglobin 13.3 GM/DL (14.0-18.0); Immature Granulocytes % 0.6 %; Immature Granulocytes Absolute 0.03 #; Lymphocytes # 0.6 10*3/uL (1.4-4.0); Lymphocytes % 11.6 % (21.2-54.2); Mean Corpuscular HGB Conc 30.8 GM/DL (32-36); Mean Corpuscular Volume 100.5 FL (87-102); Mean Platelet Volume 10.9 FL (9.6-12.0); Monocytes # 0.3 10*3/uL (0.11-0.8); Monocytes % 5.2 % (1.7-12.7); Neutrophils % 82.4 % (38.7-73.9); Platelet Count 181 T/CUMM (130-400); Red Cell Distribution Width 14.5 % (9.3-17.3)
[2022-05-23 05:46] LABS: Calcium 7.9 MG/DL (8.5-10.1); Osmolality,Calculated 268.4 MOS/KG (273-304); Potassium 4.5 MMOL/L (3.5-5.1)
[2022-05-23 05:51] LABS: Ferritin 298.6 ng/mL (26-388)
[2022-05-23 05:57] LABS: Risk Ratio 3.34; Thyroid Stimulating Hormone 0.252 uIU/ml (0.358-3.74); VLDL Cholesterol 27.4 MG/DL
[2022-05-23] MEDS: INSULIN LISPRO 100 UNIT/ML SUBCUT SCH ×4 (07:45→22:03)
[2022-05-23] MEDS: GABAPENTIN 400 MG CAPSULE PO SCH ×2 (09:00→21:25)
[2022-05-23] MEDS: ZINC GLUCONATE 50 MG TABLET PO SCH (09:00)
[2022-05-23] MEDS: LEFLUNOMIDE 10 MG TABLET PO SCH (09:00)
[2022-05-23] MEDS: CETIRIZINE 10 MG TABLET PO SCH (09:00)
[2022-05-23] MEDS: APIXABAN 5 MG TABLET PO SCH ×2 (09:00→21:25)
[2022-05-23] MEDS: amLODIPine 5 MG TABLET PO SCH (09:00)
[2022-05-23] MEDS ORDERED: LEVOFLOXACIN INJ 750 MG/150 ML PREMIX IV SCH (09:00)
[2022-05-23] MEDS ORDERED: METOPROLOL SUCCINATE XL 50 MG TABLET PO SCH (09:00)
[2022-05-23] MEDS ORDERED: AZITHROMYCIN 250 MG TABLET PO SCH (09:00)
[2022-05-23] MEDS: FAMOTIDINE 20 MG TABLET PO SCH ×2 (09:00→21:25)
[2022-05-23] MEDS: CHOLECALCIFEROL 1,000 UNIT TABLET PO SCH (09:00)
[2022-05-23] MEDS: lisinopriL 20 MG TABLET PO SCH (09:00)
[2022-05-23] MEDS: ASCORBIC ACID 500 MG TABLET PO SCH ×2 (09:00→21:25)
[2022-05-23] MEDS ORDERED: DOCUSATE SODIUM 100 MG CAPSULE PO SCH (09:00)
[2022-05-23] MEDS: DEXAMETHASONE 4 MG/1 ML VIAL IV SCH (09:00)
[2022-05-23] MEDS: MORPHINE IR 15 MG TABLET PO SCH ×2 (09:00→21:26)
[2022-05-23] MEDS: oxyCODONE/ACETAMINOPHEN 5-325 MG TABLET PO PRN ×2 (09:19→16:53)
[2022-05-23] MEDS ORDERED: REMDESIVIR 200 MG in SODIUM CHLORIDE 0.9% 210 ML IV ONE (10:00)
[2022-05-23] MEDS: cefTRIAXone 1,000 MG in SODIUM CHLORIDE 0.9% 100 ML IV SCH (10:45)
[2022-05-23] MEDS: DOXYCYCLINE HYCLATE INJ 100 MG in SODIUM CHLORIDE 0.9% 100 ML IV SCH (15:30)
[2022-05-23] MEDS: VANCOMYCIN INJ 1,000 MG in SODIUM CHLORIDE 0.9% 250 ML IV SCH (19:14)
[2022-05-23] MEDS: VENLAFAXINE XR 37.5 MG CAPSULE PO SCH (21:25)
[2022-05-23] MEDS: traZODone 50 MG TABLET PO SCH (21:25)
[2022-05-24] MEDS: ALBUTEROL INHALER 18 GM INH SCH ×2 (00:37→06:01)
[2022-05-24] MEDS: oxyCODONE/ACETAMINOPHEN 5-325 MG TABLET PO PRN ×2 (00:37→22:01)
[2022-05-24] MEDS: DOXYCYCLINE HYCLATE INJ 100 MG in SODIUM CHLORIDE 0.9% 100 ML IV SCH ×2 (02:21→14:13)
[2022-05-24 04:54] LABS: Basophils % 0.2 % (0.0-0.8); Hematocrit 36.9 VOL% (42.0-52.0); Hemoglobin 11.6 GM/DL (14.0-18.0); Immature Granulocytes % 0.2 %; Immature Granulocytes Absolute 0.01 #; Lymphocytes # 0.7 10*3/uL (1.4-4.0); Lymphocytes % 15.2 % (21.2-54.2); Mean Corpuscular HGB Conc 31.4 GM/DL (32-36); Mean Corpuscular Volume 95.8 FL (87-102); Mean Platelet Volume 10.9 FL (9.6-12.0); Monocytes # 0.3 10*3/uL (0.11-0.8); Monocytes % 7.3 % (1.7-12.7); Neutrophils % 77.1 % (38.7-73.9); Platelet Count 170 T/CUMM (130-400); Red Blood Count 3.85 MC/CUMM (3.8-5.5); Red Cell Distribution Width 14.2 % (9.3-17.3); White Blood Count 4.7 T/CUMM (4-12)
[2022-05-24] MEDS: VANCOMYCIN INJ 1,000 MG in SODIUM CHLORIDE 0.9% 250 ML IV SCH (05:01)
[2022-05-24 05:17] LABS: Calcium 7.9 MG/DL (8.5-10.1); Osmolality,Calculated 275.7 MOS/KG (273-304); Potassium 4.2 MMOL/L (3.5-5.1)
[2022-05-24] MEDS ORDERED: BACITRACIN OINT 0.9 GM PACK TOP ONE (08:23)
[2022-05-24] MEDS ORDERED: FERROUS SULFATE 325 MG TABLET PO SCH (09:00)
[2022-05-24] MEDS: INSULIN LISPRO 100 UNIT/ML SUBCUT SCH ×4 (09:31→22:27)
[2022-05-24] MEDS: cefTRIAXone 1,000 MG in SODIUM CHLORIDE 0.9% 100 ML IV SCH (09:48)
[2022-05-24] MEDS: REMDESIVIR 100 MG in SODIUM CHLORIDE 0.9% 100 ML IV SCH (09:48)
[2022-05-24] MEDS: DEXAMETHASONE 4 MG/1 ML VIAL IV SCH (09:49)
[2022-05-24] MEDS: LEFLUNOMIDE 10 MG TABLET PO SCH (09:50)
[2022-05-24] MEDS: ASCORBIC ACID 500 MG TABLET PO SCH ×2 (09:50→22:02)
[2022-05-24] MEDS: FAMOTIDINE 20 MG TABLET PO SCH ×2 (09:50→22:04)
[2022-05-24] MEDS: MORPHINE IR 15 MG TABLET PO SCH ×2 (09:51→22:03)
[2022-05-24] MEDS: lisinopriL 20 MG TABLET PO SCH (09:51)
[2022-05-24] MEDS: amLODIPine 5 MG TABLET PO SCH (09:51)
[2022-05-24] MEDS: CHOLECALCIFEROL 1,000 UNIT TABLET PO SCH (09:52)
[2022-05-24] MEDS: CETIRIZINE 10 MG TABLET PO SCH (09:52)
[2022-05-24] MEDS: ZINC GLUCONATE 50 MG TABLET PO SCH (10:10)
[2022-05-24] MEDS: APIXABAN 5 MG TABLET PO SCH ×2 (10:10→22:03)
[2022-05-24] MEDS: GABAPENTIN 400 MG CAPSULE PO SCH ×2 (10:10→22:01)
[2022-05-24] MEDS: traZODone 50 MG TABLET PO SCH (22:03)
[2022-05-24] MEDS: VENLAFAXINE XR 37.5 MG CAPSULE PO SCH (22:04)
[2022-05-25] MEDS: DOXYCYCLINE HYCLATE INJ 100 MG in SODIUM CHLORIDE 0.9% 100 ML IV SCH (04:37)
[2022-05-25] MEDS: oxyCODONE/ACETAMINOPHEN 5-325 MG TABLET PO PRN (06:04)
[2022-05-25 06:38] LABS: Hematocrit 39.1 VOL% (42.0-52.0); Hemoglobin 12.9 GM/DL (14.0-18.0); Immature Granulocytes % 0.4 %; Immature Granulocytes Absolute 0.01 #; Lymphocytes # 0.8 10*3/uL (1.4-4.0); Lymphocytes % 31.6 % (21.2-54.2); Mean Corpuscular Volume 94.2 FL (87-102); Mean Platelet Volume 11.1 FL (9.6-12.0); Monocytes # 0.4 10*3/uL (0.11-0.8); Platelet Count 189 T/CUMM (130-400); Red Blood Count 4.15 MC/CUMM (3.8-5.5); Red Cell Distribution Width 14.2 % (9.3-17.3); White Blood Count 2.5 T/CUMM (4-12)
[2022-05-25 06:39] LABS: Calcium 8.4 MG/DL (8.5-10.1); Osmolality,Calculated 281.4 MOS/KG (273-304); Potassium 4.3 MMOL/L (3.5-5.1)
[2022-05-25] MEDS: INSULIN LISPRO 100 UNIT/ML SUBCUT SCH ×2 (07:42→13:56)
[2022-05-25 07:57] VITALS: BP 139/85
[2022-05-25] MEDS: ZINC GLUCONATE 50 MG TABLET PO SCH (10:00)
[2022-05-25] MEDS: CHOLECALCIFEROL 1,000 UNIT TABLET PO SCH (10:00)
[2022-05-25] MEDS: LEFLUNOMIDE 10 MG TABLET PO SCH (10:00)
[2022-05-25] MEDS: APIXABAN 5 MG TABLET PO SCH (10:01)
[2022-05-25] MEDS: GABAPENTIN 400 MG CAPSULE PO SCH (10:01)
[2022-05-25] MEDS: FAMOTIDINE 20 MG TABLET PO SCH (10:01)
[2022-05-25] MEDS: lisinopriL 20 MG TABLET PO SCH (10:01)
[2022-05-25] MEDS: CETIRIZINE 10 MG TABLET PO SCH (10:02)
[2022-05-25] MEDS: amLODIPine 5 MG TABLET PO SCH (10:02)
[2022-05-25] MEDS: MORPHINE IR 15 MG TABLET PO SCH (10:02)
[2022-05-25] MEDS: ASCORBIC ACID 500 MG TABLET PO SCH (10:02)
[2022-05-25] MEDS: DEXAMETHASONE 4 MG/1 ML VIAL IV SCH (10:03)
[2022-05-25] MEDS: REMDESIVIR 100 MG in SODIUM CHLORIDE 0.9% 100 ML IV SCH (10:45)
[2022-05-25] MEDS: cefTRIAXone 1,000 MG in SODIUM CHLORIDE 0.9% 100 ML IV SCH (11:34)
== END 2022-05-25 12:40 | disposition home or self-care (01) | DRG 177 ==
LOC: N.ED 14:07 → N.3E 16:27
PROVIDERS: ADMIT Internal Medicine; ATTEND Internal Medicine